=== PATIENT | female | born 1980 | race Caucasian/White ===

== ENCOUNTER 2021-08-13 13:20 | Emergency (ER) | payer OTHER, SELFPAY ==
[2021-08-13 13:39] VITALS: BP 143/86; PULSE 91; RESP 20; TEMP 36.9; O2SAT 100
--- NOTE | 2021-08-13 14:04 | ED.URI ---
HPI - URI/Sore Throat General Chief Complaint: Upper Respiratory Infection Stated Complaint: Sorethroat,bodyache Time Seen by Provider: 08/13/21 13:55 Source: patient and RN notes reviewed Mode of arrival: ambulatory Limitations: no limitations History of Present Illness HPI Narrative: Patient presents today with a 3-day history of sore throat, fatigue, body aches, ear clogging. Denies fever, cough, congestion or rhinorrhea. She currently rates her pain 3/10 and has been taking Tylenol and ibuprofen with relief. No recent antibiotic use. Patient has been vaccinated against influenza and COVID-19. MD elicited complaint: sore throat Related Data Home Medications Medication Instructions Recorded Confirmed atorvastatin 40 mg PO DAILY 08/13/21 08/13/21 fexofenadine 180 mg PO DAILY 08/13/21 08/13/21 lisinopril 10 mg PO DAILY 08/13/21 08/13/21 metformin 500 mg PO BID 08/13/21 08/13/21 sertraline 50 mg PO DAILY 08/13/21 08/13/21 Allergies Allergy/AdvReac Type Severity Reaction Status Date / Time No Known Allergies Allergy Verified 08/13/21 13:43 Review of Systems Review of Systems: CONSTITUTIONAL: Denies fever, chills, or sweats.+ Body aches, fatigue EYES: Denies visual changes, redness, or discharge. ENT: Denies rhinorrhea, congestion, or otalgia.+ Sore throat, ear clogging CARDIOVASCULAR: Denies chest pain, palpitations, or edema. RESPIRATORY: Denies cough or dyspnea. GASTROINTESTINAL: Denies abdominal pain, nausea, vomiting, or diarrhea. GENITOURINARY: Denies dysuria or hematuria. SKIN: Denies rash, itching, or wounds. MUSCULOSKELETAL: Denies back pain, joint pain, or myalgia. NEUROLOGIC: Denies headache, numbness, tingling, or weakness. PSYCH: Denies depression or anxiety. [facility] Past Medical History Medical History (Updated 08/13/21 @ 14:08 by Brittany Martinez, REGIONAL OPERATIONS DIRECTOR, ) High cholesterol Hypertension Comments At time of signature, I have reviewed and agree with nursing past medical, surgical, social and family history unless otherwise noted. Please see nursing chart for further information. There is no relevant family history pertinent to the presenting complaint Exam Narrative: GENERAL: Well-appearing, well-nourished, and in no acute distress. HEAD: Normocephalic, atraumatic. EYES: EOMI. No redness or drainage. Conjunctivae normal. ENT: Mucous membranes pink and moist. Nares clear. No rhinorrhea. TMs normal bilaterally. Throat erythematous and edematous. Uvula midline. NECK: Normal AROM. Supple. Bilateral anterior and left posterior cervical chain lymphadenopathy. CHEST: No respiratory distress. Clear to auscultation. HEART: Regular rate and rhythm. No murmur appreciated. Normal peripheral pulses. EXTREMITIES: Normal range of motion. No edema. SKIN: Warm, dry, no rash. Capillary refill normal. Normal skin turgor. NEURO: No focal deficits. Alert and oriented x3. Gait steady. PSYCH: Normal affect. No signs of depression or anxiety. Course Vital Signs Vital signs: Vital Signs Temperature 98.5 F 08/13/21 13:39 Pulse Rate 91 08/13/21 13:39 Respiratory Rate 20 08/13/21 13:39 Blood Pressure 143/86 H 08/13/21 13:39 Pulse Oximetry 100 08/13/21 13:39 Temperature 98.5 F 08/13/21 13:39 Pulse Rate 91 08/13/21 13:39 Respiratory Rate 20 08/13/21 13:39 Blood Pressure 143/86 H 08/13/21 13:39 Pulse Oximetry 100 08/13/21 13:39 Reviewed. Pt has been instructed to follow up with her PCP regarding her elevated blood pressure today. MDM - URI/Sore Throat Differential Diagnosis Differential diagnosis: Likely upper respiratory infection, otitis media, sinusitis, viral infection, pharyngitis and other (Strep throat) Lab Data Attestation: I reviewed the patient's lab results. Labs: Strep Screen Positive Group A Strep *(Reference Range: Negative)* Critical Care Time Critical Care Time Critical Care Time: No Disc
== END 2021-08-13 14:11 | disposition home or self-care (01) ==
PROVIDERS: Emergency Provider Nurse Practitioner
DX: J02.0 Streptococcal pharyngitis (principal); E78.00 Pure hypercholesterolemia, unspecified; I10 Essential (primary) hypertension
CPT/HCPCS: 87880; 99203; G0463

== ENCOUNTER 2022-05-24 17:43 | Emergency (ER) | payer OTHER, SELFPAY ==
[2022-05-24 17:52] VITALS: BP 140/87; PULSE 84; RESP 18; TEMP 36.4; O2SAT 100
--- NOTE | 2022-05-24 18:00 | ED.URI ---
HPI - URI/Sore Throat General Chief Complaint: Upper Respiratory Infection Stated Complaint: sorethroat Time Seen by Provider: 05/24/22 18:01 Source: patient, RN notes reviewed and old records reviewed Mode of arrival: ambulatory Limitations: no limitations History of Present Illness HPI Narrative: 41 year old female who presents to [facility] care with complaints of sore throat, general malaise, fatigue, stuffed up nose with cough for the past week with increase in symptoms of sore throat for the past 3 days. 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 Patient states that she took home covid test this morning which was negative. Patient states that he has had Covid vaccinations and she had Covid in September of 2020. MD elicited complaint: cough, sore throat, rhinorrhea, nasal congestion and other Onset (ago): week(s) (1week with increase symptoms 3 days) Pain scale (0-10): 5 Treatments prior to arrival: acetaminophen, ibuprofen and other (Flonase and cough drops) Related Data Home Medications Medication Instructions Recorded Confirmed atorvastatin 40 mg tablet 40 mg PO DAILY 08/13/21 05/24/22 fexofenadine 180 mg tablet 180 mg PO DAILY 08/13/21 05/24/22 lisinopril 10 mg tablet 10 mg PO DAILY 08/13/21 05/24/22 metformin 500 mg tablet,extended 500 mg PO BID 08/13/21 05/24/22 release 24 hr sertraline 50 mg tablet 50 mg PO DAILY 08/13/21 05/24/22 aspirin 81 mg chewable tablet 81 mg PO DIRECTED 05/24/22 05/24/22 Allergies Allergy/AdvReac Type Severity Reaction Status Date / Time No Known Allergies Allergy Verified 05/24/22 18:00 Review of Systems Review of Systems: CONSTITUTIONAL: No known fever, chills, or sweats. EYES: Denies visual changes, redness, or discharge. ENT: Positive for rhinorrhea, congestion, sore throat, or otalgia. CARDIOVASCULAR: Denies chest pain, palpitations, or edema. RESPIRATORY: positive for cough denies dyspnea. GASTROINTESTINAL: Denies abdominal pain, nausea, vomiting, or diarrhea. GENITOURINARY: Denies dysuria or hematuria. SKIN: Denies rash or itching. MUSCULOSKELETAL: Denies back pain, joint pain, or myalgia. NEUROLOGIC: Denies headache, numbness, or weakness. PSYCHIATRIC: Positive for history of anxiety or depression. All systems reviewed & are unremarkable except as noted in HPI and below PMFSH Past Medical History Medical History (Updated 05/28/22 @ 20:33 by Zehra Champagne NP) Diabetes High cholesterol Hypertension TIA (transient ischemic attack) Surgical History Surgical History (Updated 05/28/22 @ 20:33 by Zehra Champagne NP) H/O tubal ligation Previous section Social History Social History (Updated 05/28/22 @ 20:32 by Zehra Champagne NP) Smoking status: Never smoker Alcohol intake: current Alcohol use details: social Substance use type: does not use Living arrangements: with family Additional occupation/education comments: works in daycare Gender identity (if verbalized by the patient): Female Comments At time of signature, agree with nursing past medical, surgical, social and family history. There is no relevant family history pertinent to the presenting complaint Exam Narrative: GENERAL: Well-appearing, well-nourished, and in no acute distress. HEAD: Normocephalic, atraumatic. EYES: PERRLA and EOMI. ENT: Nares red with clear rhinorrhea no epistaxis. Mucous membranes moist.TM's normal with good light reflex, throat red with no lesions or exudates, positive enlarged tonsils with painful swallowing NECK: Supple.no lymphadenopathy CHEST: Clear to auscultation. No respiratory distress.SAO2 100% on room air HEART: Regular rate and rhythm. No murmur heard. Normal peripheral pulses. ABDOMEN: Soft, nontender, nondistended, normal active bowel sounds. EXTREMITIES: Normal range of motion. No edema. SKIN: Warm, dry, no rash. NEURO: No focal deficits. Alert and oriented x3.
== END 2022-05-24 18:28 | disposition home or self-care (01) ==
PROVIDERS: Emergency Provider Registered Nurse
DX: J02.9 Acute pharyngitis, unspecified (principal); Z20.818 Contact with and (suspected) exposure to other bacterial communicable diseases; E11.9 Type 2 diabetes mellitus without complications; E78.00 Pure hypercholesterolemia, unspecified; I10 Essential (primary) hypertension; Z86.73 Personal history of transient ischemic attack (TIA), and cerebral infarction without residual deficits; Z79.82 Long term (current) use of aspirin
CPT/HCPCS: 87081; 87880; 99213; G0463

== ENCOUNTER 2022-12-28 08:37 | Emergency (ER) | payer OTHER, SELFPAY ==
[2022-12-28 08:48] VITALS: BP 113/61; PULSE 115; RESP 20; TEMP 36.2; O2SAT 99
--- NOTE | 2022-12-28 09:22 | ED.URI ---
HPI - URI/Sore Throat General Chief Complaint: Upper Respiratory Infection Stated Complaint: Cough Time Seen by Provider: 12/28/22 09:12 Source: patient Mode of arrival: ambulatory Limitations: no limitations History of Present Illness HPI Narrative: Patient presents today with 2+ week history of severe cough, no including yellow/brown sputum and shortness of breath with exertion. Denies any history of asthma or COPD. She has been taking Delsym with mild relief and also using Flonase, Benadryl, and Lorna for her seasonal allergies. Denies fever, congestion, rhinorrhea, or any additional symptoms. History of diabetes and states her blood sugars are well under control. Related Data Home Medications Medication Instructions Recorded Confirmed atorvastatin 40 mg tablet 40 mg PO DAILY 08/13/21 12/28/22 fexofenadine 180 mg tablet 180 mg PO DAILY 08/13/21 12/28/22 lisinopril 10 mg tablet 10 mg PO DAILY 08/13/21 12/28/22 metformin 500 mg tablet,extended 500 mg PO BID 08/13/21 12/28/22 release 24 hr sertraline 50 mg tablet 50 mg PO DAILY 08/13/21 12/28/22 aspirin 81 mg chewable tablet 81 mg PO DIRECTED 05/24/22 12/28/22 dulaglutide 0.75 mg/0.5 mL 0.75 mg subcut WEEKLY 12/28/22 12/28/22 subcutaneous pen injector (Trulicity) Allergies Allergy/AdvReac Type Severity Reaction Status Date / Time No Known Allergies Allergy Verified 12/28/22 08:51 Review of Systems Review of Systems: CONSTITUTIONAL: Denies body aches, fever, chills, or sweats. EYES: Denies visual changes, redness, or discharge. ENT: Denies rhinorrhea, congestion, sore throat, or otalgia. CARDIOVASCULAR: Denies chest pain, palpitations, or edema. RESPIRATORY: + cough, shortness of breath with exertion GASTROINTESTINAL: Denies abdominal pain, nausea, vomiting, or diarrhea. GENITOURINARY: Denies dysuria or hematuria. SKIN: Denies rash, itching, or wounds. MUSCULOSKELETAL: Denies back pain, joint pain, or myalgia. NEUROLOGIC: Denies headache, numbness, tingling, or weakness. PSYCH: Denies depression or anxiety. [facility] Past Medical History Medical History Diabetes High cholesterol Hypertension TIA (transient ischemic attack) Surgical History Surgical History H/O tubal ligation Previous section Social History Social History Smoking status: Never smoker Alcohol intake: current Alcohol use details: social Substance use type: does not use Living arrangements: with family Additional occupation/education comments: works in daycare Gender identity (if verbalized by the patient): Female Comments At time of signature, I have reviewed and agree with nursing past medical, surgical, social and family history unless otherwise noted. Please see nursing chart for further information. There is no relevant family history pertinent to the presenting complaint Exam Narrative: GENERAL: Well-appearing, well-nourished, and in no acute distress. HEAD: Normocephalic, atraumatic. EYES: EOMI. No redness or drainage. Conjunctivae normal. ENT: Mucous membranes pink and moist. Nares clear. No rhinorrhea. TMs normal bilaterally. Throat normal. Uvula midline. NECK: Normal AROM. Supple. No lymphadenopathy. CHEST: No respiratory distress. Clear to auscultation. Deep breaths illicit coughing episodes. Patient has for harsh cough. HEART: Regular rate and rhythm. No murmur appreciated. Normal peripheral pulses. EXTREMITIES: Normal range of motion. No edema. SKIN: Warm, dry, no rash. Capillary refill normal. Normal skin turgor. NEURO: No focal deficits. Alert and oriented x3. Gait steady. PSYCH: Normal affect. No signs of depression or anxiety. Course Course Level of Care: Express Care Visit Vital Signs Vital signs: Vital Signs Temperature 97.2 F L 04/0
== END 2022-12-28 09:28 | disposition home or self-care (01) ==
PROVIDERS: Emergency Provider Nurse Practitioner
DX: J40 Bronchitis, not specified as acute or chronic (principal); E11.9 Type 2 diabetes mellitus without complications; E78.00 Pure hypercholesterolemia, unspecified; I10 Essential (primary) hypertension; Z86.73 Personal history of transient ischemic attack (TIA), and cerebral infarction without residual deficits
CPT/HCPCS: 99213; G0463

== ENCOUNTER 2023-01-13 09:51 | Emergency (ER) | payer OTHER, SELFPAY ==
[2023-01-13 09:59] VITALS: BP 136/113; PULSE 99; RESP 18; TEMP 36.5; O2SAT 97
--- NOTE | 2023-01-13 10:01 | ED.URI ---
HPI - URI/Sore Throat General Chief Complaint: Upper Respiratory Infection Stated Complaint: congestion,cough Source: patient and RN notes reviewed Mode of arrival: ambulatory Limitations: no limitations History of Present Illness HPI Narrative: 42-year-old female presented for complaint of sinus pressure and congestion, runny nose, cough, bilateral ear pain for over a week. She has been taking Mucinex and Flonase for symptoms in addition to her regular Claritin and Benadryl. Patient endorses she was seen for cough and chest congestion on 12/28/2022, diagnosed with bronchitis, given an inhaler prednisone, and states those symptoms improved. Now 'it moved to the head.' Patient had negative covid test yesterday. Denies sob, wheezing, n/v/d/f/c. MD elicited complaint: cough Related Data Home Medications Medication Instructions Recorded Confirmed atorvastatin 40 mg tablet 40 mg PO DAILY 08/13/21 01/13/23 fexofenadine 180 mg tablet 180 mg PO DAILY 08/13/21 01/13/23 lisinopril 10 mg tablet 10 mg PO DAILY 08/13/21 01/13/23 metformin 500 mg tablet,extended 500 mg PO BID 08/13/21 01/13/23 release 24 hr sertraline 50 mg tablet 50 mg PO DAILY 08/13/21 01/13/23 aspirin 81 mg chewable tablet 81 mg PO DIRECTED 05/24/22 01/13/23 dulaglutide 0.75 mg/0.5 mL 0.75 mg subcut WEEKLY 12/28/22 01/13/23 subcutaneous pen injector (Trulicity) Allergies Allergy/AdvReac Type Severity Reaction Status Date / Time No Known Allergies Allergy Verified 01/13/23 10:04 Review of Systems Review of Systems: CONSTITUTIONAL: Denies malaise, chills, sweats, fever EYES: Denies visual changes, redness, or discharge ENT: Reports rhinorrhea, congestion, sinus pain, otalgia CARDIOVASCULAR: Denies chest pain, palpitations, edema RESPIRATORY: Reports cough, post nasal drainage. Denies dyspnea GASTROINTESTINAL: Denies abdominal pain, nausea, vomiting, diarrhea SKIN: Denies rash or itching MUSCULOSKELETAL: Denies myalgia PMFSH Past Medical History Medical History Diabetes High cholesterol Hypertension TIA (transient ischemic attack) Surgical History Surgical History H/O tubal ligation Previous section Social History Social History Smoking status: Never smoker Alcohol intake: current Alcohol use details: social Substance use type: does not use Living arrangements: with family Additional occupation/education comments: works in daycare Gender identity (if verbalized by the patient): Female Exam Narrative: GENERAL: mildly Ill-appearing, nontoxic no acute distress. HEAD: Normocephalic EYES: PERRLA, conjunctivae clear ENT: Mucous membranes moist. TM pearly valerio with dull light reflex bilaterally; no tragal tenderness. Oropharynx erythematous without lesions or exudate NECK: Supple. No lymphadenopathy CHEST: Clear to auscultation, breath sounds equal. Deep breath illicits cough, frequent [employer]. No wheezing, rhonchi, rales, or stridor. No respiratory distress, speaks in full sentences. HEART: Regular rate and rhythm. No murmur heard. SKIN: Warm, dry, no rash. NEURO: Alert and oriented x3. PSYCH: Normal mood and affect Course Course Emergency Course: Patient is aware of diagnosis, understands and agrees to treatment plan. Anticipatory guidance given. Patient agrees to follow-up as directed and is aware of reasons to seek care at the emergency department. Portions of this record may have been created with voice recognition software Level of Care: Express Care Visit Vital Signs Vital signs: Vital Signs Temperature 97.7 F 01/13/23 09:59 Pulse Rate 99 01/13/23 09:59 Respiratory Rate 18 01/13/23 09:59 Blood Pressure 136/113 H 01/13/23 09:59 Pulse Oximetry 97 01/13/23 09:59 Oxygen Delivery Room Air 01/13/23 09:59 Temperature
== END 2023-01-13 10:17 | disposition home or self-care (01) ==
PROVIDERS: Emergency Provider Nurse Practitioner Family
DX: J06.9 Acute upper respiratory infection, unspecified (principal); E11.9 Type 2 diabetes mellitus without complications; E78.00 Pure hypercholesterolemia, unspecified; I10 Essential (primary) hypertension; Z86.73 Personal history of transient ischemic attack (TIA), and cerebral infarction without residual deficits
CPT/HCPCS: 99213; G0463